=== PATIENT | female | born 1995 | race Asian ===

== ENCOUNTER 2019-10-02 09:43 | Emergency (ER) | payer OTHER ==
[~2019-10-02] VITALS: Ht 157.5 cm; Wt 63.5 kg
[2019-10-02 09:54] VITALS: BP 112/72
--- NOTE | 2019-10-02 09:56 | NUR ---
YUMIKO WASHINGTON. SENT TO LOB, AWAITING BED IN ED. VSS.
--- NOTE | 2019-10-02 10:22 | NUR ---
pt ambulated to er bed 04
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
--- NOTE | 2019-10-02 10:57 | NUR ---
Patient being evaluated by DR HOLDER at bedside.
[2019-10-02] MEDS ORDERED: SULFAMETH/TRIMETH DS 800/160MG 1 TAB PO ONE (11:05)
[2019-10-02] MEDS ORDERED: CEPHALEXIN 500 MG CAP PO ONE (11:05)
--- NOTE | 2019-10-02 11:48 | NUR ---
Patient discharged with v/s stable. Written and verbal after care instructions given and explained. Patient alert, oriented and verbalized understanding of instructions. Ambulatory with steady gait. All questions addressed prior to discharge. ID band removed. Patient advised to follow up with PMD. Rx of BACTRIM, KEFLEX & IBUPROFEN given. Patient educated on indication of medication including possible reaction and side effects. Opportunity to ask questions provided and answered.
[2019-10-02 11:49] VITALS: BP 112/72
== END 2019-10-02 11:48 | disposition home or self-care (01) ==
LOC: MED 09:43
DX: L03.114 Cellulitis of left upper limb (principal)
CPT/HCPCS: 99283

== ENCOUNTER 2023-04-10 13:49 | Emergency (ER) | payer OTHER ==
[~2023-04-10] VITALS: Ht 160 cm; Wt 65.8 kg
[2023-04-10 13:53] VITALS: BP 115/77
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
[2023-04-10] MEDS ORDERED: BACITRACIN OINT 500 UNITS/GM PKT TP ONE (14:10)
[2023-04-10] MEDS ORDERED: BACO TP (14:26)
[2023-04-10 14:52] VITALS: BP 114/76
== END 2023-04-10 14:52 | disposition home or self-care (01) ==
LOC: MED 13:49
DX: T20.26XA Burn of second degree of forehead and cheek, initial encounter (principal); T31.0 Burns involving less than 10% of body surface; X08.8XXA Exposure to other specified smoke, fire and flames, initial encounter; Y93.89 Activity, other specified; Y92.89 Other specified places as the place of occurrence of the external cause; Y99.8 Other external cause status
CPT/HCPCS: 16020; 90471; 90715; 99283